=== PATIENT | male | born 1955 | race Two or more races ===

== ENCOUNTER 2023-06-11 03:53 | Emergency (ER) | payer OTHER ==
[~2023-06-11] VITALS: Ht 182.9 cm; Wt 110.2 kg
[2023-06-11] MEDS ORDERED: CARVEDILOL ER40 MG (04:00)
[2023-06-11] MEDS ORDERED: ZOLOFT50 MG PO (04:00)
[2023-06-11] MEDS ORDERED: ALLOPURINOL300 MG PO (04:01)
[2023-06-11] MEDS ORDERED: ZESTRIL40 M1 PO (04:01)
[2023-06-11] MEDS ORDERED: HYDRALAZINE HC100 MG PO (04:01)
[2023-06-11] MEDS ORDERED: ROCALTROL0.25 MCG PO (04:02)
[2023-06-11] MEDS ORDERED: NIFEDIPINE20 MG PO (04:03)
[2023-06-11] MEDS ORDERED: DEXAMETHASONE SODIUM PHOSPHATE 4 MG/ML VIAL IM STA (08:20)
[2023-06-11] MEDS ORDERED: MEPERIDINE HCL/PF 50 MG/ML VIAL IM STA (08:21)
[2023-06-11] MEDS ORDERED: TRAM1TAB98 PO (10:09)
[2023-06-11] MEDS ORDERED: MEDROLPACK PO (10:09)
== END 2023-06-11 10:25 | disposition home or self-care (01) ==
LOC: ER 03:53
DX: M54.2 Cervicalgia (principal); M25.512 Pain in left shoulder; M25.522 Pain in left elbow; W01.0XXA Fall on same level from slipping, tripping and stumbling without subsequent striking against object, initial encounter; Y93.89 Activity, other specified; Y92.89 Other specified places as the place of occurrence of the external cause; Z91.018 Allergy to other foods; J44.9 Chronic obstructive pulmonary disease, unspecified; I12.9 Hypertensive chronic kidney disease with stage 1 through stage 4 chronic kidney disease, or unspecified chronic kidney disease; N18.9 Chronic kidney disease, unspecified; I25.10 Atherosclerotic heart disease of native coronary artery without angina pectoris
CPT/HCPCS: 72040; 73030; 73060; 73080; 96372; 99283; J1100; J3490